=== PATIENT | female | born 1955 | race Caucasian/White ===

== ENCOUNTER 2017-09-20 07:14 | Inpatient (IN) | payer OTHER ==
[~2017-09-20] VITALS: Ht 170.2 cm; Wt 87.3 kg
[2017-09-20] MEDS ORDERED: ONDANSETRON 2MG/ML, 2ML ONE (07:50)
[2017-09-20] MEDS ORDERED: FAMOTIDINE 20 MG/2 ML ONE (07:51)
[2017-09-20] MEDS ORDERED: INSU100V13 SUBD (07:58)
[2017-09-20] MEDS ORDERED: INSU100C SQ-INSULIN (07:58)
[2017-09-20] MEDS ORDERED: SIMVASTATIN (07:59)
[2017-09-20] MEDS ORDERED: LISI-167 PO (07:59)
[2017-09-20] MEDS ORDERED: ONDANSETRON 2MG/ML, 2ML IVPush ONE (08:00)
[2017-09-20] MEDS ORDERED: SIMV5TAB5 PO (08:00)
[2017-09-20] MEDS ORDERED: HYDR12.53 PO (08:00)
[2017-09-20] MEDS ORDERED: SODIUM CHLORIDE 0.9% 1,000ML IVBOLUS ONE ×2 (08:00→09:00)
[2017-09-20] MEDS ORDERED: SODIUM CHLORIDE FLUSH 10ML SYR IVF ONE (08:00)
[2017-09-20] MEDS ORDERED: FAMOTIDINE 20 MG/2 ML IVP ONE (08:00)
[2017-09-20 08:28] LABS: MICROSCOPIC NOT IND
[2017-09-20 08:30] LABS: CULTURE INDICATED? NO
[2017-09-20 08:45] LABS: ALANINE AMINOTRANSFERASE 26 U/L (12-78); ALBUMIN 4.4 g/dL (3.4-5.0); ANION GAP 24 mmol/L (5-15); CALCIUM 9.3 mg/dL (8.5-10.1); CHLORIDE 104 mmol/L (98-107); CREATININE 1.27 mg/dL (0.55-1.02)
[2017-09-20 08:47] LABS: ALKALINE PHOSPHATASE 130 U/L (45-117); BILIRUBIN,TOTAL 0.6 mg/dL (0.2-1.0); TOTAL PROTEIN 8.5 g/dL (6.4-8.2)
[2017-09-20 08:50] LABS: BASOPHILS # (AUTO) 0.03 x10^3/uL (0-0.1); BASOPHILS % (AUTO) 0 % (0-1); EOSINOPHILS # (AUTO) 0.09 x10^3/uL (0-0.4); EOSINOPHILS % (AUTO) 1 % (1-7); LYMPHOCYTES # (AUTO) 2.59 x10^3/uL (1-3.4); LYMPHOCYTES % (AUTO) 17 % (22-44); MD NO; MEAN CORPUSCULAR HGB CONC 32.7 g/dL (32.4-35.8); MEAN CORPUSCULAR VOLUME 88.7 fL (80-100); MEAN PLATELET VOLUME 10.1 fL (7.4-10.4); MONOCYTES # (AUTO) 0.45 x10^3/uL (0.2-0.8); MONOCYTES % (AUTO) 3 % (2-9); NEUTROPHILS # (AUTO) 12.11 x10^3/uL (1.8-6.8); NEUTROPHILS % (AUTO) 79 % (42-75); PLATELET COUNT 396 x10^3/uL (130-400); RED BLOOD COUNT 5.23 x10^6/uL (3.82-5.3); RED CELL DISTRIBUTION WIDTH 13.8 % (9.6-15.2)
[2017-09-20] MEDS ORDERED: REGULAR INSULIN 62.5 UNITS in SODIUM CHLORIDE 0.9% 249.375 ML IV PRN ×2 (08:52→10:00)
[2017-09-20] MEDS ORDERED: SODIUM CHLORIDE 0.9% 1,000 ML IV ONE (09:09)
[2017-09-20] MEDS ORDERED: ONDANSETRON 2MG/ML, 2ML IVPush PRN (09:30)
[2017-09-20] MEDS ORDERED: POTASSIUM CHLORIDE 20 MEQ in D5%-0.2% NACL 1,000 ML IV SCH (09:30)
[2017-09-20] MEDS ORDERED: ACETAMINOPHEN 325 MG TABLET PO PRN (09:30)
[2017-09-20] MEDS ORDERED: POLYETHYLENE GLYCOL 17 GM PACKET PO PRN (09:30)
[2017-09-20] MEDS ORDERED: TEMAZEPAM 15 MG CAPSULE PO PRN (09:30)
[2017-09-20] MEDS ORDERED: SODIUM CHLORIDE FLUSH 10ML SYR IVF PRN (09:30)
[2017-09-20 09:43] LABS: THYROID STIMULATING HORMONE 1.85 mIU/L (0.358-3.740)
[2017-09-20 09:58] LABS: ACETONE, SERUM Large (80mg/dL) mg/dL (Negative)
[2017-09-20] MEDS ORDERED: POTASSIUM CHLORIDE 20 MEQ in SODIUM CHLORIDE 0.45% 1,000 ML IV SCH (10:30)
[2017-09-20 12:21] LABS: HEMOGLOBIN A1C 8.8 % (4.2-6.3)
[2017-09-20 14:27] LABS: ANION GAP 19 mmol/L (5-15); CALCIUM 7.5 mg/dL (8.5-10.1); CHLORIDE 115 mmol/L (98-107)
[2017-09-20 14:29] LABS: CREATININE 0.92 mg/dL (0.55-1.02)
[2017-09-20] MEDS: LISINOPRIL 10 MG TABLET PO SCH (15:34)
[2017-09-20] MEDS: ENOXAPARIN 40 MG/0.4 ML SQ SCH (15:35)
[2017-09-20] MEDS: POTASSIUM CHLORIDE 20 MEQ in DEXTROSE 5% 1,000 ML IV SCH (16:02)
[2017-09-20 19:16] LABS: ANION GAP 11 mmol/L (5-15); CALCIUM 7.8 mg/dL (8.5-10.1); CHLORIDE 116 mmol/L (98-107); CREATININE 0.99 mg/dL (0.55-1.02)
[2017-09-20 19:18] VITALS: BP 153/70
[2017-09-20] MEDS: SIMVASTATIN 5 MG TABLET PO SCH (20:31)
[2017-09-20 22:46] LABS: ANION GAP 8 mmol/L (5-15); CALCIUM 7.6 mg/dL (8.5-10.1); CHLORIDE 117 mmol/L (98-107); CREATININE 0.85 mg/dL (0.55-1.02)
[2017-09-21] MEDS: POTASSIUM CHLORIDE 20 MEQ in DEXTROSE 5% 1,000 ML IV SCH (00:32)
[2017-09-21 00:53] LABS: ANION GAP 9 mmol/L (5-15); CALCIUM 8.1 mg/dL (8.5-10.1); CHLORIDE 117 mmol/L (98-107); CREATININE 0.83 mg/dL (0.55-1.02)
[2017-09-21 04:56] LABS: BASOPHILS # (AUTO) 0.03 x10^3/uL (0-0.1); BASOPHILS % (AUTO) 0 % (0-1); EOSINOPHILS # (AUTO) 0.07 x10^3/uL (0-0.4); EOSINOPHILS % (AUTO) 1 % (1-7); LYMPHOCYTES # (AUTO) 1.68 x10^3/uL (1-3.4); LYMPHOCYTES % (AUTO) 19 % (22-44); MD NO; MEAN CORPUSCULAR HEMOGLOBIN 29.3 pg (27.0-34.8); MEAN CORPUSCULAR HGB CONC 33.6 g/dL (32.4-35.8); MEAN CORPUSCULAR VOLUME 87.4 fL (80-100); MEAN PLATELET VOLUME 8.8 fL (7.4-10.4); MONOCYTES # (AUTO) 0.61 x10^3/uL (0.2-0.8); MONOCYTES % (AUTO) 7 % (2-9); NEUTROPHILS % (AUTO) 73 % (42-75); PLATELET COUNT 283 x10^3/uL (130-400); RED BLOOD COUNT 4.23 x10^6/uL (3.82-5.3); RED CELL DISTRIBUTION WIDTH 14.1 % (9.6-15.2)
[2017-09-21 05:13] LABS: ANION GAP 9 mmol/L (5-15); CALCIUM 7.7 mg/dL (8.5-10.1); CHLORIDE 115 mmol/L (98-107); CREATININE 0.83 mg/dL (0.55-1.02)
[2017-09-21 05:14] LABS: ALANINE AMINOTRANSFERASE 16 U/L (12-78)
[2017-09-21 05:16] LABS: ALKALINE PHOSPHATASE 79 U/L (45-117); BILIRUBIN,TOTAL 0.6 mg/dL (0.2-1.0); TOTAL PROTEIN 5.9 g/dL (6.4-8.2)
[2017-09-21 08:17] LABS: ANION GAP 8 mmol/L (5-15); CALCIUM 8.2 mg/dL (8.5-10.1); CHLORIDE 116 mmol/L (98-107); CREATININE 0.83 mg/dL (0.55-1.02)
[2017-09-21] MEDS: LISINOPRIL 10 MG TABLET PO SCH (08:22)
[2017-09-21] MEDS: SENNA/DOCUSATE TABLET PO SCH (08:23)
[2017-09-21 13:03] LABS: ANION GAP 10 mmol/L (5-15); CALCIUM 8.3 mg/dL (8.5-10.1); CHLORIDE 117 mmol/L (98-107); CREATININE 0.68 mg/dL (0.55-1.02)
[2017-09-21] MEDS ORDERED: REGULAR INSULIN 62.5 UNITS in SODIUM CHLORIDE 0.9% 249.375 ML IV PRN (13:30)
[2017-09-21 13:36] LABS: FIO2 ROOM AIR %
[2017-09-21] MEDS: ENOXAPARIN 40 MG/0.4 ML SQ SCH (14:04)
[2017-09-21 14:06] LABS: ACETONE, SERUM Small (20mg/dL) mg/dL (Negative)
[2017-09-21] MEDS ORDERED: POTASSIUM CHLORIDE 20 MEQ in DEXTROSE 5% 1,000 ML IV SCH (15:00)
[2017-09-21] MEDS: ENALAPRILAT 1.25 MG/ML, 2ML IVPush PRN ×2 (16:54→21:07)
[2017-09-21 17:08] LABS: ANION GAP 9 mmol/L (5-15); CALCIUM 8.1 mg/dL (8.5-10.1); CHLORIDE 112 mmol/L (98-107); CREATININE 0.82 mg/dL (0.55-1.02)
[2017-09-21] MEDS ORDERED: INSULIN GLARGINE 100 UNITS/ML, PEN SQ-INSULIN SCH (17:30)
[2017-09-21] MEDS: LABETALOL 5MG/ML, 20ML IVPush PRN ×2 (18:28→22:15)
[2017-09-21] MEDS: INSULIN LISPRO 100 UNITS/ML, PEN SQ-INSULIN SCH (21:17)
[2017-09-21] MEDS: SIMVASTATIN 5 MG TABLET PO SCH (21:18)
[2017-09-22] MEDS: INSULIN LISPRO 100 UNITS/ML, PEN SQ-INSULIN SCH (02:38)
[2017-09-22 04:48] LABS: ANION GAP 9 mmol/L (5-15); CALCIUM 8.4 mg/dL (8.5-10.1); CHLORIDE 116 mmol/L (98-107); CREATININE 0.71 mg/dL (0.55-1.02)
[2017-09-22 04:57] LABS: BASOPHILS # (AUTO) 0.03 x10^3/uL (0-0.1); BASOPHILS % (AUTO) 1 % (0-1); EOSINOPHILS # (AUTO) 0.07 x10^3/uL (0-0.4); EOSINOPHILS % (AUTO) 2 % (1-7); LYMPHOCYTES # (AUTO) 1.41 x10^3/uL (1-3.4); LYMPHOCYTES % (AUTO) 33 % (22-44); MD NO; MEAN CORPUSCULAR HEMOGLOBIN 29.5 pg (27.0-34.8); MEAN CORPUSCULAR HGB CONC 33.9 g/dL (32.4-35.8); MEAN CORPUSCULAR VOLUME 86.8 fL (80-100); MONOCYTES # (AUTO) 0.49 x10^3/uL (0.2-0.8); MONOCYTES % (AUTO) 11 % (2-9); NEUTROPHILS # (AUTO) 2.31 x10^3/uL (1.8-6.8); NEUTROPHILS % (AUTO) 54 % (42-75); PLATELET COUNT 226 x10^3/uL (130-400); RED BLOOD COUNT 4.21 x10^6/uL (3.82-5.3); RED CELL DISTRIBUTION WIDTH 13.7 % (9.6-15.2)
[2017-09-22] MEDS ORDERED: POTASSIUM CHLORIDE 20 MEQ TAB.ER.PRT PO ONE (07:30)
[2017-09-22] MEDS: LABETALOL 5MG/ML, 20ML IVPush PRN (07:57)
[2017-09-22] MEDS: SENNA/DOCUSATE TABLET PO SCH (08:48)
[2017-09-22] MEDS: LISINOPRIL 10 MG TABLET PO SCH (08:49)
[2017-09-22] MEDS ORDERED: LISINOPRIL 10 MG TABLET PO ONE (09:30)
[2017-09-22] MEDS ORDERED: LISI-167 PO (10:01)
[2017-09-22] MEDS: ENOXAPARIN 40 MG/0.4 ML SQ SCH (10:30)
== END 2017-09-22 11:19 | disposition home or self-care (01) | DRG 637 ==
LOC: ED 09:08 → EDIP 09:09 → ED 09:47 → CCU 10:00 → ICU 09-21 16:24 → DCLOUNGE 09-22 11:12
PROVIDERS: ADMIT Internal Medicine; ATTEND Internal Medicine
DX: E10.10 Type 1 diabetes mellitus with ketoacidosis without coma (principal); N17.0 Acute kidney failure with tubular necrosis; E10.649 Type 1 diabetes mellitus with hypoglycemia without coma; I10 Essential (primary) hypertension; E78.5 Hyperlipidemia, unspecified; D72.829 Elevated white blood cell count, unspecified; E86.0 Dehydration; Z80.0 Family history of malignant neoplasm of digestive organs; Z80.42 Family history of malignant neoplasm of prostate; Z82.49 Family history of ischemic heart disease and other diseases of the circulatory system; Z83.3 Family history of diabetes mellitus
CPT/HCPCS: 36415; 36600; 71045; 80048; 80053; 81003; 82010; 82800; 82803; 82962; 83036; 83605; 83690; 83735; 84100; 84443; 85025; 87081; 93005; 96361; 96365; 96375; J1650; J1815; J2405; J3480; J7070; J7030; J7050; S0028